=== PATIENT | male | born 1955 | race Caucasian/White ===

== ENCOUNTER 2018-06-23 04:31 | Emergency (ER) | payer MEDICARE, OTHER ==
--- NOTE | 2018-06-23 04:38 | ED Physician Documentation ---
PD HPI UPPER EXT INJURY - Stated complaint Stated Complaint: L HAND INJ - History obtained from History obtained from: Patient - History of Present Illness Location: Left, Finger (fourth digit) Type of injury: Blunt / blow Where injury occurred: Home Timing - onset: Enter time (10:00), Yesterday Timing - duration: Hours Timing - details: Abrupt onset Associated symptoms: Swelling, Discolored Recently seen: Not recently seen - Additonal information Additional information: Patient was taking down an old fence yesterday morning, and in trying to remove a nail with a hammer, the hammer slipped, and his hand came down forcefully on another board which had a galvanized nail protruding from it. The galvanized nail punctured through his left fourth digit. he presents at this time due to gradually worsening swelling, redness, pain of the left fourth digit, with his primary concern being his wedding ring is now stuck on the finger as he is unable to remove it due to swelling. Review of Systems Constitutional: reports: Reviewed and negative Skin: reports: Other (puncture left fourth finger) Musculoskeletal: reports: Extremity pain, Extremity swelling Neurologic: denies: Focal weakness, Numbness PD PAST MEDICAL HISTORY - Past Medical History Past Medical History: No - Present Medications Home Medications: Ambulatory Orders Medication Instructions Recorded Confirmed Cephalexin [Keflex] 500 mg PO Q6H #28 capsule 06/23/18 - Allergies Allergies/Adverse Reactions: Allergies Allergy/AdvReac Type Severity Reaction Status Date / Time iodine AdvReac Rash Verified 06/23/18 04:41 - Living Situation Living Arrangement: reports: At home PD ED PE NORMAL - Vitals Vital signs reviewed: Yes - General General: Alert and oriented X 3, No acute distress, Well developed/nourished - Neuro Neuro: No motor deficit, No sensory deficit PD ED PE EXPANDED - Extremities [place] UE/Hands Visual: 1 - deformity (puncture) 2 - deformity 3 - rash (moderate erythema), swelling 4 - rash (moderate erythema) Results - Vitals Vitals: Oxygen O2 Source Room air - Rads (name of study) left fourth digit xrays Radiology: Prelim report reviewed, See rad report PD MEDICAL DECISION MAKING - ED course Complexity details: reviewed results, re-evaluated patient, considered d ifferential, d/w patient ED course: ring removed using ring cutter and then hemostats to widen. Departure - Departure Disposition: 01 Home, Self Care Clinical Impression: Puncture wound of finger of left hand Qualifiers: Encounter type: initial encounter Qualified Code(s): S61.239A - Puncture wound without foreign body of unspecified finger without damage to nail, initial encounter Condition: Good Instructions: ED Wound Puncture General Follow-Up: Joseph Kemp MD [Primary Care Provider] - Prescriptions: Cephalexin [Keflex] 500 mg PO Q6H #28 capsule Comments: Contact your primary care physician/provider this morning to arrange for a recheck of the wound; if possible, a recheck within 24-48 hours would be ideal. Discharge Date/Time: 06/23/18 06:40
[2018-06-23] MEDS ORDERED: TETANUS/DIPHTHERIA/PERTUSSIS 0.5 ML SYRINGE IM ONE (05:29)
[2018-06-23] MEDS ORDERED: cephALEXin 250 MG CAPSULE PO STA (05:30)
--- NOTE | 2018-06-23 05:59 | XRAY Report ---
Reason: injury Procedure Date: 06/23/2018 Accession Number: [id number] / [id number] Procedure: XR - Finger(s) LT CPT Code: FULL RESULT: EXAM: LEFT FOURTH DIGIT RADIOGRAPHY EXAM DATE: 06/23/2018 05:49 AM. CLINICAL HISTORY: Injury. COMPARISON: None. TECHNIQUE: 3 views. FINDINGS: Bones: Normal. No fracture or bone lesion. Joints: Normal. No subluxations. Soft Tissues: Soft tissue swelling. No radiopaque foreign body seen in the soft tissues. IMPRESSION: Soft tissue swelling, but no evidence of fracture. RADIA
[2018-06-23 06:15] VITALS: BP 154/68
== END 2018-06-23 06:40 | disposition home or self-care (01) ==
LOC: ED 04:31
DX: S61.235A Puncture wound without foreign body of left ring finger without damage to nail, initial encounter (principal); W22.09XA Striking against other stationary object, initial encounter; W45.8XXA Other foreign body or object entering through skin, initial encounter; Y93.89 Activity, other specified; Z23 Encounter for immunization
CPT/HCPCS: 73140; 90471; 90715; 99283; A9270

== ENCOUNTER 2020-06-01 03:10 | Emergency (ER) | payer MEDICARE ==
--- NOTE | 2020-06-01 03:16 | ED Physician Documentation ---
PD HPI HEENT - Stated complaint Stated Complaint: MOUTH SWOLLEN/PX - History obtained from History obtained from: Patient - History of Present Illness Timing - onset: Yesterday Timing - duration: Days (2) Timing - details: Abrupt onset (has increased considerably in just 1-2 days.), Still present Location: Tooth (left lower tooth) Worsens: Swalllowing, Temperatures, Other (palpation locally) Associated symptoms: Facial swelling (left mandible area). No: Fever, Congestion, Swollen nodes Similar symptoms before: Diagnosis (dental infections in the past but has not had one for awhile.) Recently seen: Not recently seen Review of Systems Constitutional: denies: Fever, Chills Nose: denies: Rhinorrhea / runny nose, Congestion Throat: reports: Dental pain / toothache. denies: Oral lesions / sores, Sore throat Respiratory: denies: Cough PD PAST MEDICAL HISTORY - Past Medical History Cardiovascular: High cholesterol Respiratory: None Neuro: None Endocrine/Autoimmune: None GI: None : None HEENT: None Psych: None Musculoskeletal: Other Derm: None - Past Surgical History Past Surgical History: Yes General: Other Ortho: Other - Present Medications Home Medications: Ambulatory Orders Medication Instructions Recorded Confirmed Simvastatin [Zocor] 40 mg PO DAILY 06/01/20 06/01/20 cephALEXin [Keflex] 500 mg PO TID 6 Days #18 cap 06/01/20 - Allergies Allergies/Adverse Reactions: Allergies Allergy/AdvReac Type Severity Reaction Status Date / Time iodine AdvReac Rash Verified 06/01/20 03:18 - Social History Does the pt smoke?: Yes Smoking Status: Current every day smoker Does the pt drink ETOH?: Yes Does the pt have substance abuse?: No - Immunizations Immunizations are current?: No - POLST Patient has POLST: No PD ED PE NORMAL - Vitals Vital signs reviewed: Yes - General General: Alert and oriented X 3, No acute distress, Well developed/nourished - HEENT HEENT: Pharynx benign. No: Dentition benign (full upper dentures. Partial lower, with single tooth lower left that has caries and fillings. There is swelling and tenderness without fluctuance at the gum buccal side. No swelling lingual side. ) - Neck Neck: Supple, no meningeal sign, No adenopathy - Cardiac Cardiac: RRR, No murmur - Respiratory Respiratory: Clear bilaterally Results - Vitals Vitals: Vital Signs - 24 hr 06/01/20 06/01/20 03:10 03:20 Temperature 36.9 C 36.9 C Heart Rate 115 H 115 H Respiratory 16 16 Rate Blood Pressure 141/104 H 141/104 H O2 Saturation 97 97 Oxygen O2 Source Room air PD MEDICAL DECISION MAKING - ED course Complexity details: considered differential, d/w patient Departure - Departure Disposition: Home, Self Care Clinical Impression: Dental abscess, Pain, dental Condition: Stable Record reviewed to determine appropriate education?: Yes Instructions: ED Abscess Dental Prescriptions: cephALEXin [Keflex] 500 mg PO TID 6 Days #18 cap Comments: Rinse with warm water or antiseptic mouthwash several times daily particularly around the infected tooth. Use anti-inflammatory such as ibuprofen or naproxen 2-3 times daily. Add Tylenol if needed for pain. Cephalexin antibiotic 3 times daily for the next 5 or 6 days to improve the infection. Call your dentist on Tuesday for a follow-up appointment for more definitive care of the tooth. I would anticipate improvement in the swelling and pain over the next 2 to 3 days but you still need to follow-up with the dentist.
[2020-06-01] MEDS ORDERED: ACETAMINOPHEN 325 MG TABLET PO STA (03:26)
[2020-06-01] MEDS ORDERED: cephALEXin 250 MG CAPSULE PO STA (03:26)
[2020-06-01] MEDS ORDERED: IBUPROFEN 600 MG TABLET PO STA (03:26)
[2020-06-01] MEDS ORDERED: CEPHALEXIN 250 MG Prepack 8 CAP BOTTLE PO STA (03:26)
[2020-06-01 03:37] VITALS: BP 140/98
--- OUTSIDE RECORDS SUMMARY | 2020-06-04 02:38 | EXTERNAL MEDICAL SUMMARY RPT | Continuity of Care Document ---
:1955 Demographics Phone Unavailable Preferred Language Unknown Marital Status Unknown Adventist Affiliation Unknown Race Unknown Ethnic Group Unknown Author Organization [facility] Address [address] [phone] Phone Social History date description facility [phone]
== END 2020-06-01 03:36 | disposition home or self-care (01) ==
LOC: ED 03:10
DX: K04.7 Periapical abscess without sinus (principal); K08.89 Other specified disorders of teeth and supporting structures; F17.200 Nicotine dependence, unspecified, uncomplicated
CPT/HCPCS: 99282; 99284; A9270